=== PATIENT | female | born 1995 | race Caucasian/White ===

== ENCOUNTER → 2019-04-07 12:04 | Outpatient (CLI) | payer OTHER, SELFPAY ==
--- NOTE | 2019-04-07 | DI.MRI.S_ITS ---
PROCEDURE: MR KNEE LT WO CON INDICATIONS: Continued medial left knee pain post fall in 2015 TECHNIQUE: Noncontrast sagittal PD fast spin echo and T2 fast spin echo with fat saturation, sagittal 3-D FLASH with fat saturation; coronal T1 spin echo and PD fast spin echo with fat saturation, and axial PD fast spin echo with fat saturation through the knee. COMPARISON: None. FINDINGS: Image quality: Excellent. Menisci: The medial and lateral menisci demonstrate normal morphology and internal signal. The meniscal root ligaments appear intact. Cruciate ligaments: The anterior and posterior cruciate ligaments appear intact. Medial structures: The medial collateral ligament appears intact. The posterior oblique ligament, semimembranosus tendon insertions, oblique popliteal ligament, and meniscocapsular junction appear intact. Visualized portions of the pes anserinus tendons appear normal. No abnormal bursal fluid. Lateral structures: The lateral collateral ligament, long and short heads of the biceps femoris tendon appear intact. The popliteus tendon appears normal; the popliteofibular ligament appears intact. The posterosuperior and anteroinferior popliteomeniscal fascicles appear intact. The arcuate and fabellofibular ligaments appear intact, on either side of the lateral inferior geniculate artery. Iliotibial band appears normal. Anterior structures: The quadriceps and patellar tendons appear intact. Patellar alignment is normal. No femoral trochlear dysplasia or ventral trochlear prominence. No edema in the infrapatellar fat pad. Bones and cartilage: There is marrow edema involving the medial portion of proximal tibial shaft extending to medial tibial plateau. No definite cortical disruption is seen. Subtle linear hypointense signal within area of edema is suspected. There is also subtle marrow edema involving inferior and lateral aspect of the patella as well as medial periphery of medial femoral condyle with no discrete fracture line seen. The cartilage of the medial and lateral femorotibial compartments, as well as the patellofemoral compartment, appears normal in thickness. Joint space: There is small knee joint fluid. No Gold's cyst. Normal appearing synovial plicae are incidentally noted. IMPRESSION: 1. Marrow edema involving the medial portion of proximal tibia extending to medial tibial plateau with subtle subcortical linear hypointense signal concerning for stress fracture or insufficiency fracture in this area. No cortical disruption or depression of the tibial plateau is seen. 2. Likely bony contusion involving inferior lateral periphery of patella and medial periphery of medial femoral condyle. 3. Cruciate ligaments are intact. No evidence of focal meniscal tear. Dictated by: He Ortiz M.D. on 04/07/2019 at 15:50 Approved by: He Ortiz M.D. on 04/07/2019 at 15:53
== END ==
PROVIDERS: Visit Provider Student in an Organized Health Care Education/Training Program
DX: M25.562 Pain in left knee (principal)
CPT/HCPCS: 73721